=== PATIENT | male | born 1980 | race Caucasian/White ===

== ENCOUNTER 2023-10-30 02:30 | Emergency (ER) | payer OTHER ==
[~2023-10-30] VITALS: Ht 165.1 cm; Wt 93.0 kg
[~2023-10-30 02:30] MED LIST: AMOXICILLIN500 MG PO; ATARAX25 MG PO; CLARITIN10 MG PO; KEFLEX500 MG PO; MEDROL DOSEPAK4 MG PO; MOBIC15 MG PO; PENICILLIN VK500 MG PO; PHENERGAN W/DM120 ML PO; PREDNICOT10 MG PO; VIBRAMYCIN100 MG PO; VICODIN 5/500 505 MG PO; VICODIN ES 7501 TAB PO; VISTARIL25 M1 PO; ZITHROMAX Z PA250 MG PO
[2023-10-30 02:43] VITALS: BP 154/78
[2023-10-30] MEDS ORDERED: CVS TUSSIN CF118 M2 PO (03:32)
== END 2023-10-30 03:45 | disposition home or self-care (01) ==
LOC: ED 02:30
DX: J11.1 Influenza due to unidentified influenza virus with other respiratory manifestations (principal); R51.9 Headache, unspecified; Z20.822 Contact with and (suspected) exposure to COVID-19